=== PATIENT | female | born 1985 | race Caucasian/White ===

== ENCOUNTER 2016-12-18 17:33 | Emergency (ER) | payer OTHER ==
[~2016-12-18] VITALS: Ht 160 cm; Wt 111.1 kg
[2016-12-18 17:39] VITALS: BP 138/95
--- NOTE | 2016-12-18 18:41 | ULTRASOUND REPORT ---
EXAMINATION: US TRIPLEX LOWER EXTREMITY, LEFT CLINICAL INFORMATION: Left lower extremity edema and swelling COMPARISON: None TECHNIQUE: Color-flow triplex imaging with spectral analysis and compression Doppler were performed on the lower extremity. FINDINGS: Respiratory variation, normal compression and augmented flow are noted throughout the left lower extremity. The visualized common femoral vein, superficial femoral vein, profunda femoral vein, popliteal vein and midcalf peroneal and posterior tibial venous segments show no evidence of deep venous thrombosis. There is no Larsen's cyst. IMPRESSION: Normal triplex scan without evidence of deep venous thrombosis involving the lower extremity.
--- NOTE | 2016-12-18 19:42 | ED UPPER/LOWER EXTREMITY COMPL ---
History of Present Illness General Chief Complaint: Lower Extremity Problems Stated Complaint: SWOLLEN LEGS Source: patient, old records Exam Limitations: no limitations Vital Signs & Intake/Output Vital Signs & Intake/Output Vital Signs Date Time Temp Pulse Resp B/P B/P Pulse O2 O2 Flow FiO2 Mean Ox Delivery Rate 12/18 1739 97.5 85 16 138/95 95 Room Air ED Intake and Output 12/19 0000 12/18 1200 Intake Total Output Total Balance Patient 245 lb Weight Weight Reported by Patient Measurement Method Allergies Coded Allergies: NO KNOWN ALLERGIES (11/13/13) Triage Note: PT WITH LLE SWELLING AFTER FLYING HOME FROM VACATION TODAY. PT NOT TAKING CONTROL PILLS PT HAS NEVER HAD SWELLING IN HER LEGS. PT STATES THE RIGHT LEG LOOKS LIKE IT IS STARTING TO SELL. Triage Nurses Notes Reviewed? yes Onset: Abrupt Duration: day(s): (1), constant Timing: recent history Severity: mild Severity Numbers: 2 Pain/Injury Location: Bilateral: Foot. Method of Injury: unknown No Modifying Factors: none Associated Symptoms: swelling : No Patient currently breastfeeds: No HPI: 31-year-old female with history of PCO as hypertension presents to the ER for evaluation complaining of bilateral feet swelling left greater than right that she first noticed after getting off an airplane earlier today when she returned home from [place]. The patient denies any calf pain or swelling no history of similar symptoms in the past. She states she went to an urgent care referred her here for an ultrasound. She is on control. She denies shortness of breath chest pain no rashes to her skin no fever no chills. The patient is otherwise without any complaints. No recent tick or insect bite. (LEX PATTERSON) Past History Travel History Traveled to [place] past 21 day No Medical History Any Pertinent Medical History? see below for history Neurological: NONE EENT: NONE Cardiovascular: hypertension Respiratory: NONE Gastrointestinal: NONE Hepatic: NONE Renal: NONE Musculoskeletal: NONE Psychiatric: NONE Endocrine: NONE Blood Disorders: NONE Cancer(s): NONE SURGICAL DENTAL ASSISTANT/Reproductive: POLYCYSTIC OVARIAN SYNDROME Surgical History Surgical History: non-contributory Psychosocial History What is your primary language Nigerien Tobacco Use: Current Not Daily Daily Tobacco Use Amount/Type: =< 4 Cigarettes daily ETOH Use: occasional use Illicit Drug Use: denies illicit drug use Family History Hx Contributory? No (LEX PATTERSON) Review of Systems Review of Systems Constitutional: Reports: see HPI. All Other Systems: Reviewed and Negative Comments Review of systems: See HPI, All other systems negative. Constitutional, no chills no fever, no malaise HEENT: No visual changes no sore throat no congestion, Cardiovascular: No chest pain , no palpitation Skin: no rashes, no change in skin Respiratory: No dyspnea no cough no sputum GI: No nausea no vomiting, no diarrhea, Muscle skeletal: No joint pain, no joint swelling, no back pain, no neck pain, Neurologic: No numbness no headache Psych: No stress Heme/endocrine: No bruising Immunology: No lymphadenopathy (LEX PATTERSON) Physical Exam Physical Exam General Appearance: well developed/nourished, no apparent distress, alert Comments: Well-developed well-nourished patient in no apparent distress. HEENT: Atraumatic, extraocular motion intact Neck: Supple, FROM Back: FROM Cardiovascular: Regular rate and rhythms no murmurs rubs Respiratory: No respiratory distress. Patient speaking in full complete sentences. Breath sounds clear to auscultation bilaterally: NO W/R/R Upper Extremities: full range of motion Hip/Pelvis: Atraumatic/Stable. FROM. Knee: Atraumatic/stable. FROM. No joint swelling, no effusion. Leg: Atraumatic. Nontender. No edema, 5 out of 5 strength in the lower extremity, normal dorsiflexion of great toe bilaterally, gross sensation is intact, patellar tendon reflex 2+ bilaterally. Ankle/Foot: Atraumatic/stable. Skin intact. FROM. No swelling, no effusion. No laxity on exam Pulses: Normal/equal DP/PT pulses bilaterally. Brisk cap refill Neuro: awake, alert, and oriented to person, place and time. There were no obvious focal neurologic abnormalities. Skin: Warm & dry;No appreciable rash on exposed skin Psych: Mood affect normal, normal memory normal judgment. (LEX PATTERSON) Progress Differential Diagnosis: cellulitis, CHF, contusion, dislocation, DVT, sprain, tendon injury Plan of Care: us ordered from triage I discussed with the patient at length all of their results I advised keeping legs elevated, follow-up with primary care. I had an extensive conversation regarding need for close follow up with their primary care physician this week as well as return precautions. I answered all of their questions, they feel comfortable with the plan and follow-up care. I discussed the medications that they will receive with the patient. I gave them signs and symptoms that could indicate an adverse reaction. I have advised them to limit their activities until they can see how they respond to the medication. Diagnostic Imaging: Viewed by Me: Ultrasound. Discussed w/RAD: Ultrasound. Radiology Impression: PATIENT: CARLY MIXON PRESENT AGE: 31 PATIENT ACCOUNT NO: [id number] : 85 LOCATION: [facility] ORDERING PHYSICIAN: ROOPA LOW DO (TBS) SERVICE DATE: 12/18/16 EXAM TYPE: US - US-UNILATERAL VENOUS DOPPLER EXAMINATION: US TRIPLEX LOWER EXTREMITY, LEFT CLINICAL INFORMATION: Left lower extremity edema and swelling COMPARISON: None TECHNIQUE: Color-flow triplex imaging with spectral analysis and compression Doppler were performed on the lower extremity. FINDINGS: Respiratory variation, normal compression and augmented flow are noted throughout the left lower extremity. The visualized common femoral vein, superficial femoral vein, profunda femoral vein, popliteal vein and midcalf peroneal and posterior tibial venous segments show no evidence of deep venous thrombosis. There is no Larsen's cyst. IMPRESSION: Normal triplex scan without evidence of deep venous thrombosis involving the lower extremity. DICTATED BY: KENY MORROW MD DATE/TIME DICTATED:12/18/161835 [employer]:JUDD DATE/TIME TRANSCRIBED:1835 CONFIDENTIAL, DO NOT COPY WITHOUT APPROPRIATE AUTHORIZATION. < Electronically signed in Other Vendor System> SIGNED BY: KENY MORROW MD 12/18/16 184 (LEX PATTERSON) Departure Departure Time of Disposition: 1946 Disposition: HOME OR SELF CARE Condition: Stable Clinical Impression Primary Impression: Peripheral edema Referrals: PATIENT HAS NO PRIMARY CARE DR (PCP/Family) Additional Instructions: Keep legs elevated, follow-up with your primary care physician return to ER with any concerns. Departure Forms: Customer Survey General Discharge Information (LEX PATTERSON) PA/PRINTING EQUIPMENT MECHANIC Co-Sign Statement Statement: ED Attending supervision documentation- [] I saw and evaluated the patient. I have also reviewed all the pertinent lab results and diagnostic results. I agree with the findings and the plan of care as documented in the PA's/PRINTING EQUIPMENT MECHANIC's documentation. [X I have reviewed the ED Record and agree with the PA's/PRINTING EQUIPMENT MECHANIC's documentation. [] Additions or exceptions (if any) to the PAs/PRINTING EQUIPMENT MECHANIC's note and plan are summarized below: [] (ROOPA LOW DO)
== END 2016-12-18 19:57 ==
LOC: ERH 17:33
DX: R60.0 Localized edema (principal)